=== PATIENT | male | born 1965 | race Caucasian/White ===

== ENCOUNTER 2017-10-18 19:42 | Observation (INO) | payer OTHER ==
[~2017-10-18] VITALS: Ht 180.3 cm; Wt 71.3 kg
[~2017-10-18 19:42] MED LIST: BUPROPION HCL100 M1 PO; CELEXA20 MG PO; STRATTERA80 MG PO; VENLAFAXINE150 M1 PO; [UNRECOGNIZED DRUG - OTHER] PO
[2017-10-18 20:25] LABS: BASOPHIL % 0.2 % (0-2); PLATELET COUNT 153 x10^3mcL (130-400)
[2017-10-18 20:26] LABS: CALCIUM 8.4 mg/dL (8.5-10.1); CARBON DIOXIDE 25.5 mmol/L (21-32); CHLORIDE SERUM 104 mmol/L (98-107); CREATININE SERUM 0.9 mg/dL (0.7-1.3); GFR1 > 60 mL/min; GLUCOSE SERUM 91 mg/dL (74-106); POTASSIUM SERUM 4.3 mmol/L (3.5-5.1); SODIUM SERUM 134 mmol/L (136-145)
[2017-10-18 20:31] LABS: ALBUMIN 3.8 g/dL (3.4-5.0); ALKALINE PHOSPHATASE 82 U/L (46-116); ALT/SGPT 38 U/L (16-63); AST/SGOT 36 U/L (15-37); BILIRUBIN TOTAL 0.28 mg/dL (0.20-1.00); RED CELL DISTRIBUTION WIDTH 19.9 % (11.5-14.5); TOTAL PROTEIN, SERUM 7.4 g/dL (6.4-8.2)
[2017-10-18 20:42] LABS: microscopic required? YES; urine erythrocyte NEGATIVE (NEGATIVE)
[2017-10-18 21:05] LABS: AMPHETAMINE QUAL UR NONE DETECTED (NEG <=1000)
[2017-10-18] MEDS ORDERED: ACETAMIN W/CODE1 TA1 PO (21:48)
[2017-10-18] MEDS ORDERED: KEPPRA500 MG PO (21:49)
[2017-10-18] MEDS ORDERED: GABAPENTIN600 M1 PO (21:49)
[2017-10-18] MEDS ORDERED: DILANTIN100 MG PO (21:50)
[2017-10-18 22:32] VITALS: BP 136/69
[2017-10-18 22:40] VITALS: Ht 180.3 cm; Wt 71.3 kg
[2017-10-19 05:57] VITALS: BP 138/69
[2017-10-19 06:22] LABS: BASOPHIL % 0.2 % (0-2); PLATELET COUNT 147 x10^3mcL (130-400)
[2017-10-19 07:08] LABS: T4(THYROXINE) 8.7 ug/dL (4.7-13.3)
[2017-10-19 09:30] VITALS: BP 124/77
[2017-10-19 10:38] LABS: ERYTHROCYTE SED RATE 7 mm/hr (0-20)
[2017-10-19 13:34] VITALS: BP 139/73
[2017-10-19 13:43] VITALS: BP 139/73
[2017-10-20 09:32] LABS: RHEUMATOID ARTHRITIS FACTOR 13.1 IU/mL (0.0-13.9)
[2017-10-21 12:44] LABS: RAPID PLASMA REAGIN Non Reactive (Non Reactive)
== END 2017-10-19 17:05 | disposition other institution (70) | DRG 312 ==
LOC: ED 19:42 → DU 21:34
PROVIDERS: Emergency Medicine; Internal Medicine
DX: R55 Syncope and collapse (principal); F19.239 Other psychoactive substance dependence with withdrawal, unspecified; F32.9 Major depressive disorder, single episode, unspecified; I10 Essential (primary) hypertension; S00.81XA Abrasion of other part of head, initial encounter; W19.XXXA Unspecified fall, initial encounter; Y93.89 Activity, other specified; Z68.25 Body mass index [BMI] 25.0-25.9, adult; Y92.89 Other specified places as the place of occurrence of the external cause
CPT/HCPCS: 83880; 86431; G0378; G0480; J1885; J1956; J2270; J2405; J7030; Q0092